=== PATIENT | female | born 1950 | race Caucasian/White ===

== ENCOUNTER 2016-09-13 09:27 | Inpatient (IN) | payer OTHER, MEDICARE ==
[~2016-09-13] VITALS: Ht 162.6 cm; Wt 99.0 kg
[2016-09-15] MEDS ORDERED: NEXI40CA PO (12:51)
[2016-09-18 07:17] VITALS: BP 167/75; PULSE 66; RESP 16; TEMP 98.7; O2SAT 95
[2016-09-18] MEDS ORDERED: TRANEXAMIC PERI-ARTICULAR 3,000 MG/NS 100 ML P-ARTICULR SCH ×2 (07:30)
[2016-09-18] MEDS ORDERED: TRANEXAMIC ACID INJ 1,425 MG in SODIUM CHLORIDE 0.9% INJ 100 ML IV SCH (07:30)
[2016-09-18] MEDS ORDERED: POVIDONE IODINE 7.5% SCRUB 118 ML BOTTLE TOP SCH (07:30)
[2016-09-18] MEDS ORDERED: ceFAZolin 2 GM PREMIX 50 ML IV SCH (07:30)
[2016-09-18] MEDS: LACTATED RINGER'S 1000 ML IV SCH (07:30)
[2016-09-18] MEDS ORDERED: DEXAMETHASONE SOD PHOS 20 MG/5 ML VIAL IV ONE (07:30)
[2016-09-18] MEDS ORDERED: CHLORHEXIDINE GLUCONATE 4% SOLN 120 ML BTL TOP SCH (07:30)
[2016-09-18] MEDS ORDERED: ROPIVACAINE PERI-ARTICULAR INJECTION. PERIART SCH ×5 (07:30)
[2016-09-18] MEDS ORDERED: INSULIN HUMAN REGULAR 1,000 UNITS/10 ML VIAL SQ PRN (07:45)
[2016-09-18] MEDS ORDERED: METOPROLOL TARTRATE 25 MG TAB PO PRN (07:45)
[2016-09-18] MEDS ORDERED: VANCOMYCIN 1000 MG/NS 250 ML (for <70 kg) IV SCH ×2 (07:45)
[2016-09-18] MEDS: SODIUM CHLORID 0.9% 500 ML IV SCH (08:00)
[2016-09-18] MEDS ORDERED: MIDAZOLAM HCL 5 MG/5 ML VIAL ONE (08:02)
[2016-09-18] MEDS ORDERED: GENTAMICIN SULFATE 80 MG/2 ML VIAL ONE (08:30)
[2016-09-18] MEDS ORDERED: ACETAMINOPHEN 1000 MG/100 ML VIAL IV ONE (09:00)
[2016-09-18] MEDS ORDERED: FAMOTIDINE 20 MG/2 ML VIAL ONE (09:00)
[2016-09-18] MEDS ORDERED: HYDROmorphone HCL PF 2 MG/ML VIAL ONE (09:00)
[2016-09-18] MEDS ORDERED: HYDR-3288 PO (09:14)
[2016-09-18] MEDS ORDERED: APIX2.5T PO (09:14)
[2016-09-18] MEDS ORDERED: ONDANSETRON HCL 4 MG/2 ML VIAL IVP PRN (09:15)
[2016-09-18] MEDS ORDERED: MAGNESIUM HYDROXIDE SUSP 30 ML CUP PO PRN (09:15)
[2016-09-18] MEDS ORDERED: MORPHINE SULFATE 4 MG/ML INJ IV PUSH PRN (09:15)
[2016-09-18] MEDS ORDERED: ZOLPIDEM TARTRATE 5 MG TAB PO PRN (09:15)
[2016-09-18] MEDS ORDERED: ALUMINUM/MAGNESIUM/SIMETH 30 ML CUP PO PRN (09:15)
[2016-09-18] MEDS ORDERED: diphenhydrAMINE HCL 50 MG/ML VIAL IV PRN (09:15)
[2016-09-18] MEDS ORDERED: SODIUM CHLORIDE 0.9% FLUSH 5 ML FLUSH IVF PRN (09:15)
[2016-09-18] MEDS ORDERED: ACETAMINOPHEN/HYDROcodone 325 MG/7.5 MG TAB PO PRN (09:15)
[2016-09-18] MEDS ORDERED: NALOXONE HCL 0.4 MG/ML AMP IV PRN (09:15)
[2016-09-18] MEDS ORDERED: Post-op Orders (for Pharmacy) MISC XX ONE (09:15)
[2016-09-18] MEDS ORDERED: BISACODYL 10 MG SUPP PR PRN (09:15)
[2016-09-18] MEDS ORDERED: BUPIVACAINE LIPOSOME PF 1.3% 20 ML VIAL ONE (10:51)
[2016-09-18] MEDS ORDERED: DO NOT ADM ANY ANTICOAGULANT DRUGS XX PRN ×2 (11:15→12:00)
[2016-09-18] MEDS ORDERED: fentaNYL CITRATE 250 MCG/5 ML AMP ONE (11:27)
--- NOTE | 2016-09-18 11:39 | MP ---
cc: DESMOND ARAMBULA DATE OF SURGERY 09/18/2016 PREOPERATIVE DIAGNOSIS Right knee osteoarthritis. POSTOPERATIVE DIAGNOSIS Right knee osteoarthritis. PROCEDURE Right total knee arthroplasty SURGEON Dr. Desmond Arambula [employer] Jamie Torres PA-C ANESTHESIA General with an adductor canal block. ESTIMATED BLOOD LOSS 100 cc. COMPLICATIONS None. IMPLANTS USED DePuy Attune size 7 posterior stabilized femoral component, size 7 rotating platform tibial baseplate, size 12-mm polyethylene tibial insert, size 38-mm patella. JUSTIFICATION This patient is a 66-year-old female with a history of severe end-stage osteoarthritis involving the right knee. She has severe disabling pain with standing, walking, ambulation, weightbearing activities and even severe pain at rest. It does interfere with activities of daily living. She has failed greater than two months of nonoperative conservative treatment modalities to include medication therapy, injections, ambulatory assistive aids, home exercise program, activity modification, weight loss attempts. X-rays of the right knee reveal severe end-stage osteoarthritis with [id number] joint space narrowing, subchondral sclerosis, subchondral cysts, osteophyte formation and varus deformity. The patient was counseled as to the risks, benefits and alternatives to a total knee arthroplasty. The risks were discussed to include but are not limited to anesthesia, bleeding, infection, damage to nerves, blood vessels, pain, stiffness, failure of the components, blood clots, pulmonary embolism and even . The patient's pain is severe. She favored the benefits over the risks and did wish to proceed with surgery. PROCEDURE IN DETAIL Written consent was obtained. The patient was identified by name and taken to the operating room, placed supine on the operating room table. General anesthesia was administered as well as 2 grams of IV Ancef and 1 gram of IV vancomycin. A well-padded tourniquet was placed on the right thigh, the right lower extremity prepped and draped using isopropyl alcohol, Hibiclens solution and ChloraPrep solution. An Esmarch bandage was used to exsanguinate the right lower extremity and the tourniquet inflated to 250 mmHg. A longitudinal incision was made over the anterior aspect of the right knee and medial parapatellar arthrotomy incision was performed. The patella was everted. A patellar resection guide was used to resect 9.5 mm of patella. A size 38-mm guide was placed and three drill holes were placed. The 38-mm trial fit well. Attention was turned to the femur where an intramedullary guide dixie was placed and the distal guide set to remove 10 mm of distal femur, 5 degrees off the anatomic valgus axis alignment. An oscillating saw was used to perform the distal femoral cut. Attention was turned to the tibia where an extramedullary tibial guide was set to resect 5-mm off the lowest portion of the medial tibial plateau. The tibial guide was pinned in place and the tibia was cut. The 5-mm spacer block showed full extension. Attention was turned back to the femur where the AP sagittal block measured a size 7. The anterior reference, 3-degree external rotational guide was used to pin the size [address] The anterior, posterior and chamfer cuts were performed. A size 7 PCL box guide was pinned in place and PCL was boxed out with an oscillating saw. The medial and lateral meniscus remnants were removed as well as bone and soft tissue debris from the posterior portion of the knee. A size 7 tibial base plate was pinned in place, the tibia was drilled and punched. Trial components were evaluated and final components cemented in place. With the 12-mm polyethylene tibial insert, the leg could achieve full extension of 0 degrees and flexion to 140, no evidence of tibial lift-off. Varus-valgus balance appeared appropriate and symmetric. The surgical wound was thoroughly irrigated with sterile saline pulse lavage antibiotic impregnated solution. The arthrotomy incision was closed with #1 Vicryl suture, the subcutaneous layer closed with 2-0 Vicryl suture and the skin was closed with Dermabond. Sterile dressings were applied. The patient tolerated the procedure well. There was no intraoperative complication noted. Jamie Torres, physician assistant manager trainee certified, was present during the entire procedure to include patient positioning and the procedure itself. The medical necessity of a physician assistant manager trainee was indicated in this case due to the complexity of the procedure itself. He assisted with appropriate manipulation of the leg and also retraction of muscle, tendon, bone and neurovascular structures. He assisted with preparation of bone and implantation of the prosthetic replacement. Desmond Arambula MD JWM/MICHEAL /10:58 AM /11:28 AM
[2016-09-18] MEDS ORDERED: ePHEDrine/NS 25 MG/5 ML SYR IV ONE (12:00)
[2016-09-18] MEDS ORDERED: ONDANSETRON HCL 4 MG/2 ML VIAL IV PUSH ONE (12:00)
[2016-09-18] MEDS ORDERED: PROPOFOL 200 MG/20 ML AMP IV ONE (12:00)
[2016-09-18] MEDS: SODIUM CHLOR 0.9% 1000 ML INJ 1,000 ML IV SCH ×2 (12:00→19:11)
[2016-09-18] MEDS ORDERED: LACTATED RINGER'S 1000 ML INJ 1,000 ML IV ONE (12:00)
--- NOTE | 2016-09-18 12:02 | RADRPT ---
EXAM DATE/TIME: 09/18/2016 11:33 [facility] COMPARISON: No previous studies available for comparison. INDICATIONS : Post op right knee. MEDICAL HISTORY : None. SURGICAL HISTORY : Right knee replacement. ENCOUNTER: Subsequent ACUITY: 1 day PAIN SCORE: 5/10 LOCATION: Right knee FINDINGS: Placement of a total knee prosthesis is well-seated with anterior soft tissue air CONCLUSION: Total knee prosthesis well seated Yoandy Amos MD on September 18, 2016 at 12:00 Board Certified Radiologist. This report was verified electronically.
[2016-09-18 12:55] VITALS: BP 137/84; PULSE 76; RESP 18; TEMP 96.6; O2SAT 99
--- NOTE | 2016-09-18 14:59 | PD.CONS ---
HPI Service [facility] Consult Requested By Dr. Constantino Mdeina Reason for Consult Medical management- history of GERD/hiatal hernia Primary Care Physician Desi Banda physician Diagnoses: History of Present Illness Patient is a very pleasant 66-year-old female with known history of bilateral osteoarthritis knee, GERD/hiatal hernia, history of chronic back pain who every now and uses a cane for ambulation. She was admitted today and underwent right total knee arthroplasty because of increasing pain on this knee that has been getting just out of control. Patient takes ibuprofen that helps "a little bit. Patient actually have also complained of left knee pain and had shots done to this receive shots to this knee. Eventually plan is to, do surgery on this knee 2. Patient currently seen postop day 0 awake alert very motivated with doing more physical therapy. And looking forward to going to a [facility]. Patient currently denies any pain nausea vomiting. Review of Systems Constitutional: DENIES: Diaphoretic episodes, Fatigue, Fever, Weight gain, Weight loss, Chills, Dizziness, Change in appetite, Night Sweats Endocrine: DENIES: Abnorml menstrual pattern, Heat/cold intolerance, Polydipsia , Polyuria, Polyphagia Eyes: DENIES: Blurred vision, Diplopia, Eye inflammation, Eye pain, Vision loss , Photosensitivity, Double Vision Ears, nose, mouth, throat: DENIES: Tinnitus, Hearing loss, Vertigo, Nasal discharge, Oral lesions, Throat pain, Hoarseness, Ear Pain, Running Nose, Epistaxis, Sinus Pain, Toothache, Odynophagia Respiratory: DENIES: Apneas, Cough, Snoring, Wheezing, Hemoptysis, Sputum production, Shortness of breath Cardiovascular: DENIES: Chest pain, Palpitations, Syncope, Dyspnea on Exertion , PND, Lower Extremity Edema, Orthopnea, Claudication Gastrointestinal: DENIES: Abdominal pain, Black stools, Bloody stools, Constipation, Diarrhea, Nausea, Vomiting, Difficulty Swallowing, Anorexia Genitourinary: DENIES: Abnormal vaginal bleeding, Dysmenorrhea, Dyspareunia, Sexual dysfunction, Urinary frequency, Urinary incontinence, Urgency, Hematuria , Dysuria, Nocturia, Vaginal discharge Musculoskeletal: COMPLAINS OF: Joint pain (bilateral knee pain) Integumentary: DENIES: Abnormal pigmentation, Pruritus, Rash, Nail changes, Breast masses, Breast skin changes, Nipple discharge Hematologic/lymphatic: DENIES: Bruising, Lymphadenopathy Immunologic/allergic: DENIES: Eczema, Urticaria Neurologic: COMPLAINS OF: Abnormal gait (gait difficulty because of knee pain occasionally uses a cane) Psychiatric: DENIES: Anxiety, Confusion, Mood changes, Depression, Hallucinations, Agitation, Suicidal Ideation, Homicidal Ideation, Delusions Past Family Social History Allergies: Coded Allergies: No Known Allergies (Unverified , 09/18/16) Past Medical History History of GERD/hiatal hernia well controlled on omeprazole 40 mg daily Past Surgical History Gastric bypass surgery in 1999 Reported Medications As outpatient she was on omeprazole 40 mg daily When necessary ibuprofen Active Ordered Medications Eliquis 2.5 mg twice a day [place] 7.5 mg every 6 when necessary for pain Family History Noncontributory Social History Denies smoking or alcohol use denies any substance abuse, 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 SKIN: No rashes, ecchymoses or lesions. Cool and dry. HEAD: Atraumatic. Normocephalic EYES: Pupils equal round and reactive. Extraocular motions intact. No scleral icterus. ENT: Nose without bleeding, Throat without erythema, Airway patent. NECK: Trachea midline. No JVD or lymphadenopathy. Supple, nontender, no meningeal signs. CARDIOVASCULAR: Regular rate and rhythm without murmurs, gallops, or rubs. RESPIRATORY: Clear to auscultation. Breath sounds equal bilaterally. No wheezes , rales, or rhonchi. GASTROINTESTINAL: Abdomen soft, non-tender, No guarding. MUSCULOSKELETAL: Right lower extremity with post op elastic dressing in place. Left lower extremity no calf tenderness or swelling. NEUROLOGICAL: Awake and alert. Cranial nerves II through XII intact. Five out of 5 muscle strength in all muscle groups. Normal speech. Laboratory Laboratory Tests Test 09/18/16 07:20 Blood Type B NEGATIVE Antibody Screen NEGATIVE Blood Bank Comment Imaging Last Impressions Knee X-Ray 09/18/16 0911 Signed Impressions: Service Date/Time: Sunday, September 18, 2016 11:33 - CONCLUSION: Total knee prosthesis well seated Yoandy Amos MD Assessment and Plan Assessment and Plan 66-year-old female admitted under orthopedic services Status post right total knee arthroplasty 09/18 [place] prn for pain PTOT evaluation Orthopedic surgery following History of GERD/hiatal hernia Continue on omeprazole 40 mg daily DVT prophylaxis per ortho DC planning patient prefers to go to SNF- [facility] Thank you for this consult we'll follow patient in-house with you Discussed Condition With Patient Darian Farias MD Sep 18, 2016 14:59
[2016-09-18 16:00] VITALS: BP 128/69; PULSE 102; RESP 18; TEMP 96.4; O2SAT 95
[2016-09-18] MEDS: SENNOSIDES 8.6 MG TAB PO SCH (19:52)
[2016-09-18] MEDS: SODIUM CHLORIDE 0.9% FLUSH 5 ML FLUSH IVF SCH (19:52)
[2016-09-18] MEDS: MAGNESIUM HYDROXIDE SUSP 30 ML CUP PO SCH (19:52)
[2016-09-18 20:00] VITALS: BP 126/77; PULSE 72; RESP 16; TEMP 97; O2SAT 97
[2016-09-18] MEDS: ACETAMINOPHEN/HYDROcodone 325 MG/7.5 MG TAB PO PRN (20:17)
[2016-09-19] VITALS: BP 106/54; PULSE 62; RESP 16; TEMP 97.1; O2SAT 96
[2016-09-19] MEDS: SODIUM CHLORID 0.9% 500 ML IV SCH (00:40)
[2016-09-19 04:00] VITALS: BP 129/71; PULSE 67; RESP 16; TEMP 97.9; O2SAT 96
[2016-09-19] MEDS: SODIUM CHLOR 0.9% 1000 ML INJ 1,000 ML IV SCH ×2 (05:11→15:11)
[2016-09-19] MEDS: ACETAMINOPHEN/HYDROcodone 325 MG/7.5 MG TAB PO PRN ×5 (05:25→23:35)
[2016-09-19 06:01] LABS: HEMATOCRIT 26.4 % (35.0-46.0); MEAN CELL VOLUME 78.6 FL (80.0-100.0); MEAN CORPUSCULAR HGB CONC 31.8 % (32.0-36.0); PLATELET COUNT 264 TH/MM3 (150-450); RED BLOOD COUNT 3.35 MIL/MM3 (4.00-5.30); RED CELL DISTRIBUTION WIDTH 16.2 % (11.6-17.2); REVIEW FLAG FINAL; WHITE BLOOD COUNT 9.8 TH/MM3 (4.0-11.0)
[2016-09-19 06:20] LABS: BICARBONATE 25.3 MEQ/L (21.0-32.0)
[2016-09-19 08:00] VITALS: BP 132/69; PULSE 71; RESP 18; TEMP 97.9; O2SAT 98
[2016-09-19] MEDS: LACTATED RINGER'S 1000 ML IV SCH (08:00)
--- NOTE | 2016-09-19 08:30 | PD.ORT.PN ---
Subjective Post Op Day #: 1 Subjective Remarks pain controlled. doing well. Objective Vitals Vital Signs Date Time Temp Pulse Resp B/P Pulse Ox O2 Delivery O2 Flow Rate FiO2 09/19/16 08:00 97.9 71 18 132/69 98 09/19/16 04:00 97.9 67 16 129/71 96 09/19/16 00:00 97.1 62 16 106/54 96 09/18/16 20:00 97.0 72 16 126/77 97 09/18/16 16:00 96.4 102 18 128/69 95 09/18/16 12:55 96.6 76 18 137/84 99 09/18/16 12:25 97.8 68 16 140/75 95 Nasal Cannula 2 09/18/16 12:15 68 15 141/77 94 Nasal Cannula 2 09/18/16 12:00 67 15 143/81 97 Nasal Cannula 3 09/18/16 11:45 65 15 148/76 94 Nasal Cannula 3 09/18/16 11:30 71 15 153/79 98 Nasal Cannula 4 09/18/16 11:20 97.8 86 15 155/88 97 Nasal Cannula 4 I/O 09/18/16 09/18/16 09/18/16 09/19/16 09/19/16 09/19/16 07:00 15:00 23:00 07:00 15:00 23:00 Intake Total 1400 ml 840 ml 240 ml Output Total 950 ml Balance 450 ml 840 ml 240 ml Intake Oral 840 ml 240 ml IV Total 100 ml Other 1300 ml Output Urine Total 850 ml Estimated Blood Loss 100 ml # Voids 4 1 # Bowel Movements 0 0 Result Diagram: 09/19/1615 09/19/16 0515 Imaging Last 24 hours Impressions Knee X-Ray 09/18/16 0911 Signed Impressions: Service Date/Time: Sunday, September 18, 2016 11:33 - CONCLUSION: Total knee prosthesis well seated Yoandy Amos MD Objective Remarks in chair, nad dressing c/d/i neg homans nvi Assessment & Plan Ortho Post Op Day #: 1 Problem List: Assessment and Plan s/p R TKA wbat daily dressing changes lovenox - d/co on Eliquis rx in chart d/c planning to [facility] [id number] signed f/up dr. robison 2 weeks Constantino Torres Sep 19, 2016 08:30
--- NOTE | 2016-09-19 08:31 | HHI.DCPOC ---
Discharge Care Plan Diagnosis: (1) Primary localized osteoarthrosis, lower leg Your Health Problems Are: Difficulty with ADL Goals to Promote Your Health * To prevent worsening of your condition and complications * To maintain your health at the optimal level Directions to Meet Your Goals Take your medications as prescribed Follow your dietary instruction Follow activity as directed Keep your appointments as scheduled Take your immunizations and boosters as scheduled If your symptoms worsen call your PCP, if no PCP go to Urgent Care Center or Emergency Room Smoking is Dangerous to Your Health. Avoid second hand smoke Call the 24-hour hour crisis hotline for domestic abuse at Constantino Torres Sep 19, 2016 08:31
[2016-09-19] MEDS ORDERED: CPMMACHINE (08:32)
[2016-09-19] MEDS ORDERED: WALKER WHEELS/F1 MIS (08:32)
[2016-09-19] MEDS: PANTOPRAZOLE SOD 40 MG DELAYED RELEASE TAB PO SCH (09:50)
[2016-09-19] MEDS: SODIUM CHLORIDE 0.9% FLUSH 5 ML FLUSH IVF SCH ×2 (09:50→21:24)
[2016-09-19] MEDS: ENOXAPARIN SODIUM 40 MG/0.4 ML SYRINGE SQ SCH (10:27)
[2016-09-19] MEDS: MAGNESIUM HYDROXIDE SUSP 30 ML CUP PO SCH ×2 (10:28→20:42)
[2016-09-19 12:00] VITALS: BP 130/72; PULSE 72; RESP 19; TEMP 98.1; O2SAT 98
--- NOTE | 2016-09-19 15:23 | HHI.PR ---
Subjective Remarks no complains patient very motivated with physical therapy voiding spontaneously Objective Vitals Vital Signs Date Time Temp Pulse Resp B/P Pulse Ox O2 Delivery O2 Flow Rate FiO2 09/19/16 12:00 98.1 72 19 130/72 98 09/19/16 08:00 97.9 71 18 132/69 98 09/19/16 04:00 97.9 67 16 129/71 96 09/19/16 00:00 97.1 62 16 106/54 96 09/18/16 20:00 97.0 72 16 126/77 97 09/18/16 16:00 96.4 102 18 128/69 95 I/O 09/18/16 09/18/16 09/18/16 09/19/16 09/19/16 09/19/16 07:00 15:00 23:00 07:00 15:00 23:00 Intake Total 1400 ml 840 ml 240 ml Output Total 950 ml Balance 450 ml 840 ml 240 ml Intake Oral 840 ml 240 ml IV Total 100 ml Other 1300 ml Output Urine Total 850 ml Estimated Blood Loss 100 ml # Voids 4 1 # Bowel Movements 0 0 Result Diagram: 09/19/16 0515 09/19/16 0515 Imaging Last Impressions Knee X-Ray 09/18/16 0911 Signed Impressions: Service Date/Time: Sunday, September 18, 2016 11:33 - CONCLUSION: Total knee prosthesis well seated Yoandy Amos MD Objective Remarks awake and alert, oriented 3 anicteric lungs clear regular rhythm abdomen soft, Right LE- elastic dressing in place Procedures 09/18- right TKA A/P Assessment and Plan 66-year-old female admitted under orthopedic services Status post right total knee arthroplasty 09/18 [place] prn for pain PT daily Orthopedic surgery following Postop anemia started on MVI per ortho History of GERD/hiatal hernia Continue on omeprazole 40 mg daily DVT prophylaxis - Lovenox patient on eliquis 2.5 mg by mouth twice a day DC planning patient - [facility] - Sunday Darian Farias MD Sep 19, 2016 15:23
[2016-09-19 16:25] VITALS: BP 146/77; PULSE 75; RESP 18; TEMP 98.1; O2SAT 98
[2016-09-19 19:31] VITALS: BP 136/64; PULSE 77; RESP 18; TEMP 98.3; O2SAT 96
[2016-09-19] MEDS: DOCUSATE SODIUM 100 MG CAP PO SCH (20:42)
[2016-09-19] MEDS: MULTIVITAMINS/MINERALS THERAPEUTIC TAB PO SCH (20:42)
[2016-09-19] MEDS: SENNOSIDES 8.6 MG TAB PO SCH (20:42)
[2016-09-20] VITALS: BP 148/67; PULSE 90; RESP 17; TEMP 99.5; O2SAT 93
[2016-09-20] MEDS: ACETAMINOPHEN/HYDROcodone 325 MG/7.5 MG TAB PO PRN ×3 (04:47→12:53)
[2016-09-20 07:03] LABS: HEMATOCRIT 24.5 % (35.0-46.0); MEAN CELL VOLUME 77.1 FL (80.0-100.0); MEAN CORPUSCULAR HGB CONC 32.4 % (32.0-36.0); PLATELET COUNT 235 TH/MM3 (150-450); RED BLOOD COUNT 3.18 MIL/MM3 (4.00-5.30); RED CELL DISTRIBUTION WIDTH 16.3 % (11.6-17.2); REVIEW FLAG FINAL; WHITE BLOOD COUNT 7.3 TH/MM3 (4.0-11.0)
[2016-09-20 07:22] LABS: BICARBONATE 27.6 MEQ/L (21.0-32.0); POTASSIUM 3.9 MEQ/L (3.5-5.1)
[2016-09-20 08:00] VITALS: BP 143/68; PULSE 83; RESP 18; TEMP 98.4; O2SAT 94
--- NOTE | 2016-09-20 08:33 | PD.ORT.PN ---
Subjective Post Op Day #: 2 Subjective Remarks pain controlled. doing well. Objective Vitals Vital Signs Date Time Temp Pulse Resp B/P Pulse Ox O2 Delivery O2 Flow Rate FiO2 09/20/16 08:00 98.4 83 18 143/68 94 09/20/16 00:00 99.5 90 17 148/67 93 09/19/16 19:31 98.3 77 18 136/64 96 09/19/16 16:25 98.1 75 18 146/77 98 09/19/16 12:00 98.1 72 19 130/72 98 I/O 09/19/16 09/19/16 09/19/16 09/20/16 09/20/16 09/20/16 07:00 15:00 23:00 07:00 15:00 23:00 Intake Total 240 ml 720 ml 240 ml 240 ml Balance 240 ml 720 ml 240 ml 240 ml Intake Oral 240 ml 720 ml 240 ml 240 ml # Voids 1 3 2 3 # Bowel Movements 0 0 0 Result Diagram: 09/20/16 0613 09/20/16 0613 Imaging Last 24 hours Impressions Knee X-Ray 09/18/16 0911 Signed Impressions: Service Date/Time: Sunday, September 18, 2016 11:33 - CONCLUSION: Total knee prosthesis well seated Yoandy Amos MD Objective Remarks in chair, nad incision no erythema, no drainage neg homans nvi Assessment & Plan Ortho Post Op Day #: 2 Problem List: Assessment and Plan s/p R TKA wbat daily dressing changes lovenox - d/co on Eliquis IS and OOB rx in chart d/c planning to [facility] 3008 signed f/up dr. robison 2 weeks Constantino Torres Sep 20, 2016 08:33
[2016-09-20] MEDS: DOCUSATE SODIUM 100 MG CAP PO SCH (09:03)
[2016-09-20] MEDS: MULTIVITAMINS/MINERALS THERAPEUTIC TAB PO SCH (09:03)
[2016-09-20] MEDS: PANTOPRAZOLE SOD 40 MG DELAYED RELEASE TAB PO SCH (09:04)
[2016-09-20] MEDS: MAGNESIUM HYDROXIDE SUSP 30 ML CUP PO SCH (09:04)
[2016-09-20] MEDS: ENOXAPARIN SODIUM 40 MG/0.4 ML SYRINGE SQ SCH (09:05)
[2016-09-20] MEDS: SODIUM CHLORIDE 0.9% FLUSH 5 ML FLUSH IVF SCH (09:06)
[2016-09-20] MEDS: LACTATED RINGER'S 1000 ML IV SCH (09:06)
[2016-09-20 09:19] VITALS: O2SAT 96
[2016-09-20] MEDS ORDERED: MAGNESIUM HYDROXIDE SUSP 30 ML CUP PO ONE (11:30)
[2016-09-20 12:00] VITALS: BP 141/65; PULSE 75; RESP 18; TEMP 97.6; O2SAT 96
--- NOTE | 2016-09-25 08:31 | MD ---
cc: DESMOND MEDINA ADMISSION DATE: 09/18/2016 DISCHARGE DATE: 09/20/2016 ADMISSION DIAGNOSIS Severe degenerative osteoarthritis right knee. DISCHARGE DIAGNOSIS Severe degenerative osteoarthritis right knee. HISTORY OF PRESENT ILLNESS Ms. Corona is a 66-year-old female who presented to the [facility] for evaluation by Dr. Desmond Medina regarding her severe bilateral knee pain, right greater than left. The patient states the pain has been bothering her for numerous years and currently her right knee is a severe constant aching sensation aggravated by weightbearing activities. She notes she has been treated for this ailment for greater than one year duration. She notes the right knee has no alleviating factors for her pain at this point in time. In the past she has tried medications, bracing, physical therapy, home exercise program, multiple corticosteroid injections without long-lasting relief. She does have x-ray evidence of severe degenerative osteoarthritis of the right knee. While in the office the patient was counseled on her diagnosis and treatment options. Risks, benefits, indications of all were discussed in great detail. The patient did elect to proceed with surgical intervention to include a right total knee arthroplasty. Date of surgery 09/18/2016, right total knee arthroplasty. POSTOPERATIVE After surgery the patient admitted to [facility] where she received appropriate medical management, pain control, DVT prophylaxis as well as physical therapy. DISCHARGE Once being discharged from the hospital the patient is cleared to go to a half-way facility. She is in stable condition. She may weightbear as tolerated. She is to receive daily dressing changes and has been instructed on proper wound care management. The patient has been provided prescriptions for pain control as well as DVT prophylaxis medication. She has also been provided a follow-up appointment to see Dr. Desmond Medina in the office approximately 2 weeks from her date of surgery. The patient has asked appropriate questions which have all been answered. Patient has been cleared for discharge. Dictated by MELVIN Don MD NELIA Daley/KATHY /7:58 AM /8:32 AM
== END 2016-09-20 13:49 | DRG 470 ==
LOC: HSDI 09-18 05:18 → N06A 09-18 12:37
PROVIDERS: ADMIT Orthopaedic Surgery Sports Medicine; ATTEND Orthopaedic Surgery Sports Medicine
PROC: 3E0T3CZ (ICD-10-PCS; 2016-09-18)
PROC: 0SRC0J9 Replacement of Right Knee Joint with Synthetic Substitute, Cemented, Open Approach (ICD-10-PCS; principal; 2016-09-18 09:10)
DX: M17.11 Unilateral primary osteoarthritis, right knee (principal); E66.9 Obesity, unspecified; D64.9 Anemia, unspecified; K21.9 Gastro-esophageal reflux disease without esophagitis; K44.9 Diaphragmatic hernia without obstruction or gangrene; Z98.84 Bariatric surgery status; Z68.37 Body mass index [BMI] 37.0-37.9, adult
CPT/HCPCS: 73560; 80048; 85027; 86850; 86900; 86901; 94150; C1776; C9290; J0131; J0171; J0690; J0735; J1100; J1170; J1580; J1650; J1885; J2250; J2270; J2405; J2795; J3010; J3370; J7030; J7050; J7120; L1830

== ENCOUNTER 2017-01-09 15:35 | Inpatient (IN) | payer OTHER, MEDICARE ==
[~2017-01-09] VITALS: Ht 162.6 cm; Wt 101.3 kg
[~2017-01-09 15:35] MED LIST: NEXI40CA PO; WALKER WHEELS/F1 MIS
[2017-01-15] MEDS ORDERED: SODIUM CHLORIDE 0.9% FLUSH 5 ML FLUSH IVF PRN (06:45)
[2017-01-15] MEDS ORDERED: ACETAMINOPHEN/HYDROcodone 325 MG/7.5 MG TAB PO PRN (06:45)
[2017-01-15] MEDS ORDERED: ALUMINUM/MAGNESIUM/SIMETH 30 ML CUP PO PRN (06:45)
[2017-01-15] MEDS ORDERED: ONDANSETRON HCL 4 MG/2 ML VIAL IVP PRN (06:45)
[2017-01-15] MEDS ORDERED: NALOXONE HCL 0.4 MG/ML AMP IV PRN (06:45)
[2017-01-15] MEDS ORDERED: ZOLPIDEM TARTRATE 5 MG TAB PO PRN (06:45)
[2017-01-15] MEDS ORDERED: MORPHINE SULFATE 4 MG/ML INJ IV PUSH PRN (06:45)
[2017-01-15] MEDS ORDERED: diphenhydrAMINE HCL 50 MG/ML VIAL IV PRN (06:45)
[2017-01-15] MEDS ORDERED: BISACODYL 10 MG SUPP RECTAL PRN (06:45)
[2017-01-15] MEDS ORDERED: HYDR-3288 PO (06:46)
[2017-01-15] MEDS ORDERED: ENOX40P SQ (06:47)
[2017-01-15] MEDS ORDERED: ASPI81CH37 CHEW (06:47)
[2017-01-15] MEDS ORDERED: GENTAMICIN SULFATE 80 MG/2 ML VIAL ONE (07:03)
[2017-01-15 07:26] VITALS: BP 171/81; PULSE 72; RESP 16; TEMP 98.7; O2SAT 96
[2017-01-15] MEDS ORDERED: DEXAMETHASONE SOD PHOS 20 MG/5 ML VIAL ONE (07:33)
[2017-01-15] MEDS ORDERED: ceFAZolin 2 GM PREMIX 50 ML ONE (07:33)
[2017-01-15] MEDS ORDERED: VANCOMYCIN HCL 1000 MG VIAL ONE (07:33)
[2017-01-15] MEDS ORDERED: SODIUM CHLOR 0.9% 250 ML INJ 250 ML ONE (07:33)
[2017-01-15 07:38] LABS: BLOOD, URINE MOD (NEG); COMMENT (UR) CATH-CULT NOT IND; CULTURE IF INDICATED CATH CULTURE NOT IND; GLUCOSE,URINE NEG (NEG); KETONE, URINE NEG (NEG); MUCUS URINE FEW /lpf (OCC); NITRITE,URINE NEG (NEG); PH, URINE 5.5 (5.0-8.5); URINE COLOR YELLOW (YELLW/STRAW)
[2017-01-15] MEDS ORDERED: CHLORHEXIDINE GLUCONATE 2 % 1 PACK (2 CLOTHS) TOPICAL PRN (08:00)
[2017-01-15] MEDS ORDERED: ceFAZolin 2 GM PREMIX 50 ML IV SCH (08:00)
[2017-01-15] MEDS ORDERED: INSULIN HUMAN REGULAR 1,000 UNITS/10 ML VIAL SQ PRN (08:00)
[2017-01-15] MEDS ORDERED: METOPROLOL TARTRATE 25 MG TAB PO PRN (08:00)
[2017-01-15] MEDS ORDERED: POVIDONE IODINE 5% (ANTISEPSIS KIT) 4 APPLICATIONS EACH NARE PRN (08:00)
[2017-01-15] MEDS ORDERED: CHLORHEXIDINE GLUCONATE 4% SOLN 120 ML BTL TOPICAL SCH (08:00)
[2017-01-15] MEDS ORDERED: POVIDONE IODINE 7.5% SCRUB 118 ML BOTTLE TOPICAL SCH (08:00)
[2017-01-15] MEDS ORDERED: TRANEXAMIC ACID IV SCH (08:00)
[2017-01-15] MEDS ORDERED: LACTATED RINGER'S 1000 ML IV PRN (08:00)
[2017-01-15] MEDS ORDERED: TRANEXAMIC PERI-ARTICULAR 3,000 MG/NS 100 ML P-ARTICULR SCH ×2 (08:00)
[2017-01-15] MEDS ORDERED: ROPIVACAINE PERI-ARTICULAR INJECTION. P-ARTICULR SCH ×5 (08:00)
[2017-01-15] MEDS ORDERED: SODIUM CHLORID 0.9% 500 ML IV PRN (08:00)
[2017-01-15] MEDS ORDERED: SODIUM CHLORIDE 0.9% IV SCH (08:00)
[2017-01-15] MEDS ORDERED: VANCOMYCIN 1000 MG/NS 250 ML (for <70 kg) IV SCH ×2 (08:00)
[2017-01-15] MEDS ORDERED: FAMOTIDINE 20 MG/2 ML VIAL ONE (08:05)
[2017-01-15] MEDS ORDERED: MIDAZOLAM HCL 2 MG/2 ML VIAL ONE ×2 (08:05→10:55)
[2017-01-15] MEDS ORDERED: ACETAMINOPHEN 1000 MG/100 ML VIAL IV ONE (08:05)
[2017-01-15] MEDS: PANTOPRAZOLE SOD 40 MG DELAYED RELEASE TAB PO SCH (09:00)
[2017-01-15] MEDS: SODIUM CHLORIDE 0.9% FLUSH 5 ML FLUSH IVF SCH ×2 (09:00→21:18)
[2017-01-15] MEDS ORDERED: BUPIVACAINE LIPOSOME PF 1.3% 20 ML VIAL ONE (10:52)
[2017-01-15] MEDS ORDERED: fentaNYL CITRATE 250 MCG/5 ML AMP ONE (10:55)
[2017-01-15] MEDS ORDERED: *morphine SULFATE 8 MG/ML PERIprocedure ONLY ONE (10:58)
[2017-01-15] MEDS ORDERED: DO NOT ADM ANY ANTICOAGULANT DRUGS PRN (11:00)
[2017-01-15] MEDS: SODIUM CHLOR 0.9% 1000 ML INJ 1,000 ML IV SCH ×2 (11:00→17:41)
[2017-01-15] MEDS ORDERED: Post-op Orders (for Pharmacy) MISC XX ONE (11:00)
--- NOTE | 2017-01-15 11:52 | RADRPT ---
EXAM DATE/TIME: 01/15/2017 11:01 [facility] COMPARISON: No previous studies available for comparison. INDICATIONS : Post operative left knee. MEDICAL HISTORY : None. SURGICAL HISTORY : None. ENCOUNTER: Initial ACUITY: 1 day PAIN SCORE: Non-responsive. LOCATION: Left knee. FINDINGS: Postsurgical features of left knee arthroplasty. Thoracic components are in anatomic alignment. No ev idence for acute bony fracture. Postsurgical soft tissue emphysema and edema. CONCLUSION: 1. Status post left knee arthroplasty in anatomic alignment without significant acute fracture. Eleazar Bear MD on January 15, 2017 at 11:38 Board Certified Radiologist. This report was verified electronically.
[2017-01-15 12:00] VITALS: BP 142/72; PULSE 81; RESP 16; TEMP 96.7; O2SAT 100
[2017-01-15] MEDS ORDERED: PROPOFOL 200 MG/20 ML AMP IV ONE (12:00)
[2017-01-15] MEDS ORDERED: ePHEDrine/NS 25 MG/5 ML SYR IV ONE (12:00)
[2017-01-15] MEDS ORDERED: ONDANSETRON HCL 4 MG/2 ML VIAL IV PUSH ONE (12:00)
[2017-01-15] MEDS ORDERED: LACTATED RINGER'S 1000 ML INJ 1,000 ML IV ONE (12:00)
[2017-01-15] MEDS ORDERED: NEOSTIGMINE 3 MG/3 ML SYR IV ONE (12:00)
[2017-01-15] MEDS ORDERED: PHENYLEPH/NS 1000 MCG/10 ML SYR IV ONE (12:00)
--- NOTE | 2017-01-15 13:00 | HHI.DCPOC ---
Discharge Care Plan Diagnosis: (1) Primary localized osteoarthrosis, lower leg Your Health Problems Are: Difficulty with ADL Goals to Promote Your Health * To prevent worsening of your condition and complications * To maintain your health at the optimal level Directions to Meet Your Goals Take your medications as prescribed Follow your dietary instruction Follow activity as directed Keep your appointments as scheduled Take your immunizations and boosters as scheduled If your symptoms worsen call your PCP, if no PCP go to Urgent Care Center or Emergency Room Smoking is Dangerous to Your Health. Avoid second hand smoke Call the 24-hour hour crisis hotline for domestic abuse at Constantino Torres Jan 15, 2017 13:00
--- NOTE | 2017-01-15 13:01 | HHI.FF ---
Face to Face Verification Diagnosis: (1) Primary localized osteoarthrosis, lower leg Physical Therapy Gait training, Safety evaluation, Transfer training, bed to chair Knee: Total knee, Protocol: Left, Full weight bearing Left LE Weight Bearing: WB as tolerated Nursing RN: 3 days/week x 2 weeks Nursing: Mirna teaching, Dressing changes Dressing Changes: Daily dressing change I have seen patient Lorena Corona on 01/15/17. My clinical findings support the need for the requested home health care services because: Limited ability to care for self High risk of falls I certify that my clinical findings support that this patient is homebound because: Post-op weakness Unsteady gait/balance Constantino Torres Jan 15, 2017 13:01
[2017-01-15 13:10] VITALS: O2SAT 98
[2017-01-15 16:00] VITALS: BP 115/68; PULSE 90; RESP 17; TEMP 96.1; O2SAT 96
--- NOTE | 2017-01-15 16:31 | PD.CONS ---
HPI Service [facility] Consult Requested By Orthopedic surgery. Reason for Consult Medical management. Primary Care Physician Kyree Shah MD Diagnoses: (1) Osteoarthritis of left knee (2) GERD (gastroesophageal reflux disease) History of Present Illness Ms. Corona is a pleasant 66 year old female with a history of osteoarthritis, right sided total knee arthroplasty, GERD who underwent elective left total knee arthroplasty on 01/15/2017. Patient reports significant left knee pain despite conservative management which prompted surgical consideration. At the time of this interview, patient is doing well and has no acute concerns. She denies any chest pain, shortness of breath, fever, chills. She feels somewhat uncomfortable with regards to her left knee and requests adjustments. No changes in bowel or bladder habits. Denies any abdominal pain. Review of Systems Except as stated in HPI: all other systems reviewed are Neg Past Family Social History Allergies: Coded Allergies: No Known Allergies (Unverified , 01/15/17) Past Medical History Osteoarthritis GERD Past Surgical History Right total knee arthroplasty Gastric bypass in year 1999 Reported Medications [place] 7.5/325mg 1-2 tab Q6hrs PRN Nexium 40mg Qday Family History Mother - cancer Dad - hypertension. Both parents were ministers. Social History Denies using tobacco or illicit drugs. However, she drinks small amount of alcohol everyday. Physical Exam Vital Signs Vital Signs Date Time Temp Pulse Resp B/P Pulse Ox O2 Delivery O2 Flow Rate FiO2 01/15/17 16:00 96.1 90 17 115/68 96 01/15/17 13:10 98 Nasal Cannula 3.00 01/15/17 12:00 96.7 81 16 142/72 100 01/15/17 11:45 97.8 78 14 133/71 94 Nasal Cannula 3 01/15/17 11:30 75 14 153/77 94 Nasal Cannula 3 01/15/17 11:15 77 14 141/68 94 Nasal Cannula 3 01/15/17 11:00 75 14 150/73 95 Nasal Cannula 3 01/15/17 10:50 97.8 90 16 156/76 98 Nasal Cannula 3 01/15/17 07:26 98.7 72 16 171/81 96 Physical Exam GENERAL: This is a well-nourished, well-developed patient, in no apparent distress. SKIN: No rashes, ecchymoses or lesions. Warm and dry. HEAD: Atraumatic. Normocephalic. No temporal or scalp tenderness. EYES: Pupils equal round and reactive. No injection or drainage. ENT: Nose without bleeding, purulent drainage or septal hematoma. Airway patent. NECK: Trachea midline. No lymphadenopathy. Supple, nontender, no meningeal signs. CARDIOVASCULAR: Regular rate and rhythm without murmurs, gallops, or rubs. No JVD. RESPIRATORY: Clear to auscultation. Breath sounds equal bilaterally. No wheezes , rales, or rhonchi. GASTROINTESTINAL: Abdomen soft, non-tender, nondistended. No guarding. MUSCULOSKELETAL: Extremities without clubbing, cyanosis, or edema. s/p left sided TKA. Moves all toes. NEUROLOGICAL: Awake and alert. Cranial nerves II through XII intact. No focal neurological deficits. Normal speech. Laboratory Laboratory Tests Test 01/15/17 01/15/17 07:16 07:28 Urine Color YELLOW Urine Turbidity CLEAR Urine pH 5.5 Urine Specific [place] 1.016 Urine Protein NEG Urine Glucose (UA) NEG Urine Ketones NEG Urine Occult Blood MOD Urine Nitrite NEG Urine Bilirubin NEG Urine Urobilinogen LESS THAN 2.0 Urine Leukocyte Esterase NEG Urine RBC 29 Urine WBC 1 Urine Mucus FEW Microscopic Urinalysis Comment CATH-CULT NOT IND Blood Type B NEGATIVE Antibody Screen NEGATIVE Imaging Last Impressions Knee X-Ray 01/15/17 0644 Signed Impressions: Service Date/Time: Sunday, January 15, 2017 11:01 - CONCLUSION: 1. Status post left knee arthroplasty in anatomic alignment without significant acute fracture. Eleazar Bear MD Assessment and Plan Problem List: (1) Osteoarthritis of left knee ICD Code: M17.12 Status: Acute (2) GERD (gastroesophageal reflux disease) ICD Code: K21.9 Status: Acute Assessment and Plan Ms. Corona is a 66 year old female with a history of osteoarthritis, GERD who underwent left sided total knee arthroplasty on 01/15/2017. Hospitalist service was consulted for medical management. - Osteoarthritis of left knee - s/p Left sided total knee arthroplasty - [place] 7.5/325 1-2 tablets and Morphine IV for pain PRN. - Docusate as well as dulcolax supp for bowel regimen. - Lovenox 40mg Q24hrs starting 01/16/2017 (10 doses). - GERD - Continue Protonix. Thank you for the consult. We will continue to follow this patient with you. Jair Bailey DO Jan 15, 2017 16:31
[2017-01-15] MEDS: ACETAMINOPHEN/HYDROcodone 325 MG/7.5 MG TAB PO PRN ×2 (17:40→22:39)
[2017-01-15 19:00] VITALS: BP 136/70; PULSE 77; RESP 17; TEMP 96.5; O2SAT 97
[2017-01-16] VITALS (8 sets, daily range): BP systolic 115–156; BP diastolic 54–76; PULSE 61–76; RESP 17–19; TEMP 95.7–98.2; O2SAT 94–98
[2017-01-16] MEDS: SODIUM CHLOR 0.9% 1000 ML INJ 1,000 ML IV SCH ×3 (02:29→20:00)
[2017-01-16] MEDS: ACETAMINOPHEN/HYDROcodone 325 MG/7.5 MG TAB PO PRN ×6 (02:35→23:56)
[2017-01-16 07:17] LABS: HEMATOCRIT 25.6 % (35.0-46.0); MEAN CORPUSCULAR HGB CONC 31.2 % (32.0-36.0); PLATELET COUNT 234 TH/MM3 (150-450); RED BLOOD COUNT 3.32 MIL/MM3 (4.00-5.30); RED CELL DISTRIBUTION WIDTH 20.8 % (11.6-17.2); REVIEW FLAG FINAL; WHITE BLOOD COUNT 7.5 TH/MM3 (4.0-11.0)
--- NOTE | 2017-01-16 07:34 | MP ---
cc: DESMOND ARAMBULA M.D. DATE OF SURGERY 01/15/2017 PREOPERATIVE DIAGNOSIS Left knee osteoarthritis. POSTOPERATIVE DIAGNOSIS Left knee osteoarthritis. PROCEDURE Left total knee arthroplasty. SURGEON Dr. Desmond Arambula [employer] Jamie Torres PA-C ANESTHESIA General with femoral nerve block. ESTIMATED BLOOD LOSS 50 cc. COMPLICATIONS None. IMPLANTS USED DePuy Attune size 7 posterior stabilized femoral component, size 7 rotating platform tibia baseplate, size 5-mm tibial insert, size 38 patella. JUSTIFICATION This patient is a 66-year-old female with history of severe end-stage osteoarthritis involving the left knee. She has severe disabling pain with standing, walking, ambulation and weightbearing activities, even severe pain at rest. She has failed greater than three months of nonoperative conservative treatment to include medication therapy, injections, ambulatory assistive aids, home exercise program, activity modification, weight loss attempts. X-rays of the left knee reveal severe end-stage osteoarthritis with [id number] joint space narrowing, subchondral sclerosis, subchondral cysts, osteophyte formation and varus deformity. The patient was counseled as to the risks, benefits and alternatives to a total knee arthroplasty. The risks were discussed which include but are not limited to anesthesia, bleeding, infection, damage to nerves, blood vessels, pain, stiffness, failure of the components, blood clots, pulmonary embolism and even . The patient's pain was severe. She favored the benefits over the risks and did wish to proceed with surgery. PROCEDURE IN DETAIL Written consent was obtained. The patient was identified by name, taken to the operating room, placed supine on the operating table. General anesthesia was administered as well as 2 grams of IV Ancef and 1 gram of IV vancomycin. The patient also received an adductor canal femoral nerve block. A well-padded tourniquet was placed on the left thigh, the left lower extremity prepped and draped using isopropyl alcohol, Hibiclens solution and Chloraprep solution. After a time-out was performed, an Esmarch bandage was used to exsanguinate the left lower extremity and the tourniquet was inflated to 300 mmHg. A longitudinal incision was made over the anterior aspect of the left knee. A medial parapatellar arthrotomy was performed. The patella was everted. Patella resection guide was used to resect 9 mm of patella. The size 38-mm guide was placed and three drill holes were placed. The 38-mm trial fit well. Attention was turned to the femur where an intramedullary guide wire was placed and the distal femoral guide was set to remove 10 mm of distal femur 5 degrees off the anatomic valgus axis in alignment. An oscillating saw was used to perform the distal femoral cut. Attention was turned to the tibia where an extramedullary tibial guide was set to remove 5 mm off the lowest portion of the medial tibial plateau. The tibial guide was pinned in place. The tibia cut was performed. A 5-mm spacer block showed full extension. Attention was turned back to the femur where the AP sizing block measured a size 7. The anterior reference, 3-degree external rotation guide was used to pin a size [address] The anterior and posterior chamfer cuts were performed. A size 7 PCL box guide was pinned in place and the PCL was boxed out with an oscillating saw. The medial and lateral meniscus remnants were removed as well as bone and soft tissue debris from the posterior portion of the knee. The size 7 tibial baseplate was pinned in place, the tibia was drilled and punched, trial components were evaluated and final components cemented in place. With the 5-mm tibial insert, the leg could achieve full extension to 0 degrees and flexion to 140. No evidence of tibial lift-off. Varus-valgus balance appeared appropriate and symmetric. The patella was noted to track centrally. With the tourniquet deflated, Bovie cautery used for hemostasis. The knee was thoroughly irrigated with sterile saline and pulse lavage antibiotic impregnated solution. The arthrotomy incision was closed with #1 Vicryl suture, the subcutaneous layer with 2-0 Vicryl suture. The skin was closed with Dermabond and sterile dressing applied. The patient tolerated the procedure well with no intraoperative complications noted. Jamie Torres, physician practice assistant certified, was present during the entire procedure to include patient positioning and the procedure itself. The medical necessity of the physician practice assistant was indicated in this case due to the complexity of the procedure. He assisted with appropriate manipulation of the leg and also retraction of muscle, tendon, bone and neurovascular structures. He assisted with preparation of bone and also implantation of the prosthetic replacement. MD NELIA Daley/MICHEAL /10:27 AM /7:23 AM
[2017-01-16 07:42] LABS: BICARBONATE 26.7 MEQ/L (21.0-32.0); POTASSIUM 3.8 MEQ/L (3.5-5.1)
--- NOTE | 2017-01-16 08:43 | PD.ORT.PN ---
Subjective Post Op Day #: 1 Subjective Remarks pain controlled. doing well. Objective Vitals Vital Signs Date Time Temp Pulse Resp B/P Pulse Ox O2 Delivery O2 Flow Rate FiO2 01/16/17 04:00 97.0 61 17 115/54 96 01/16/17 00:00 95.7 69 17 124/64 96 01/15/17 19:24 Nasal Cannula 3.00 01/15/17 19:00 96.5 77 17 136/70 97 01/15/17 16:00 96.1 90 17 115/68 96 01/15/17 13:10 98 Nasal Cannula 3.00 01/15/17 12:00 96.7 81 16 142/72 100 01/15/17 11:45 97.8 78 14 133/71 94 Nasal Cannula 3 01/15/17 11:30 75 14 153/77 94 Nasal Cannula 3 01/15/17 11:15 77 14 141/68 94 Nasal Cannula 3 01/15/17 11:00 75 14 150/73 95 Nasal Cannula 3 01/15/17 10:50 97.8 90 16 156/76 98 Nasal Cannula 3 I/O 01/15/17 01/15/17 01/15/17 01/16/17 01/16/17 01/16/17 07:00 15:00 23:00 07:00 15:00 23:00 Intake Total 1750 ml 1515 ml 1166 ml Output Total 1220 ml 600 ml 450 ml Balance 530 ml 915 ml 716 ml Intake Oral 600 ml 480 ml 150 ml IV Total 150 ml 1035 ml 1016 ml Other 1000 ml Output Urine Total 1100 ml 600 ml 450 ml Estimated Blood Loss 120 ml # Bowel Movements 0 0 0 Result Diagram: 01/16/17 0657 01/16/17 0657 Objective Remarks in bed, nad, eating dressing c/d/i neg homans nvi Assessment & Plan Ortho Post Op Day #: 1 Problem List: Assessment and Plan s/p R TKA wbat daily dressing changes lovenox d/c planning to snf - waiting on authorization chronic anemia - asymptomatic rx in chart 3008 signed f/up dr. robison 2 weeks Constantino Torres Jan 16, 2017 08:43
[2017-01-16] MEDS: SODIUM CHLORIDE 0.9% FLUSH 5 ML FLUSH IVF SCH ×2 (09:00→20:00)
[2017-01-16] MEDS: PANTOPRAZOLE SOD 40 MG DELAYED RELEASE TAB PO SCH (09:07)
[2017-01-16] MEDS ORDERED: PNEUMOCOCCAL POLYVALENT INJ 25 MCG/0.5 ML SYR IM ONE (10:00)
[2017-01-16] MEDS ORDERED: INFLUENZA VIRUS VACCINE (QUADRIVALENT) 0.5 ML SYR IM ONE (10:00)
--- NOTE | 2017-01-16 10:16 | HHI.PR ---
Subjective Remarks Follow up on patient s/p L TKR. Patient seen and examined today. Patient reports she feels well. Pain controlled. No BM as of yet but passing gas. Denies any fever, chills, SOB, chest pain or abdominal pain. Objective Vitals Vital Signs Date Time Temp Pulse Resp B/P Pulse Ox O2 Delivery O2 Flow Rate FiO2 01/16/17 09:53 98 Nasal Cannula 2.00 01/16/17 08:00 97.2 64 18 123/68 98 01/16/17 04:00 97.0 61 17 115/54 96 01/16/17 00:00 95.7 69 17 124/64 96 01/15/17 19:24 Nasal Cannula 3.00 01/15/17 19:00 96.5 77 17 136/70 97 01/15/17 16:00 96.1 90 17 115/68 96 01/15/17 13:10 98 Nasal Cannula 3.00 01/15/17 12:00 96.7 81 16 142/72 100 01/15/17 11:45 97.8 78 14 133/71 94 Nasal Cannula 3 01/15/17 11:30 75 14 153/77 94 Nasal Cannula 3 01/15/17 11:15 77 14 141/68 94 Nasal Cannula 3 01/15/17 11:00 75 14 150/73 95 Nasal Cannula 3 01/15/17 10:50 97.8 90 16 156/76 98 Nasal Cannula 3 I/O 01/15/17 01/15/17 01/15/17 01/16/17 01/16/17 01/16/17 07:00 15:00 23:00 07:00 15:00 23:00 Intake Total 1750 ml 1515 ml 1166 ml Output Total 1220 ml 600 ml 450 ml Balance 530 ml 915 ml 716 ml Intake Oral 600 ml 480 ml 150 ml IV Total 150 ml 1035 ml 1016 ml Other 1000 ml Output Urine Total 1100 ml 600 ml 450 ml Estimated Blood Loss 120 ml # Bowel Movements 0 0 0 Result Diagram: 01/16/17 0657 01/16/1757 Imaging Last Impressions Knee X-Ray 01/15/17 0644 Signed Impressions: Service Date/Time: Sunday, January 15, 2017 11:01 - CONCLUSION: 1. Status post left knee arthroplasty in anatomic alignment without significant acute fracture. Eleazar Bear MD Objective Remarks GENERAL: This is a well-nourished, well-developed patient, in no apparent distress. Ambulating in hallway with PT. SKIN: No rashes, ecchymoses or lesions. Warm and dry. HEENT: Atraumatic. Normocephalic. EOMI. MMM. CARDIOVASCULAR: Regular rate and rhythm without murmurs, gallops, or rubs. No JVD. RESPIRATORY: Clear to auscultation. Breath sounds equal bilaterally. No wheezes , rales, or rhonchi. GASTROINTESTINAL: Abdomen soft, non-tender, nondistended. No guarding. MUSCULOSKELETAL: Extremities without clubbing, cyanosis, or edema. s/p left TKA , lizz wrap in place. Moves all toes. NEUROLOGICAL: Awake and alert. Able to move all extremities. No focal neurological deficits. Normal speech. Medications and IVs Current Medications Medications (Trade) Dose Ordered Sig/Brielle Route Start Time Stop Time Status Last Admin Pantoprazole Sodium 40 mg 40 mg DAILY PO 01/15/17 09:00 01/16/17 09:07 (NS 1000 ml Inj) 1,000 ml @ 100 mls/hr Q10H IV 01/15/17 06:44 01/16/17 02:29 (NS Flush) 2 ml UNSCH PRN IVF 01/15/17 06:45 01/15/17 12:45 (NS Flush) 2 ml BID IVF 01/15/17 09:00 01/16/17 09:00 (Lovenox Inj) 40 mg Q24H SQ 01/16/17 10:00 01/25/17 10:01 (Morphine Inj) 3 mg Q3H PRN IV PUSH 01/15/17 06:45 01/15/17 12:45 ([place] 7.5-325 Mg) 1 tab Q4H PRN PO 01/15/17 06:45 01/15/17 13:55 ([place] 7.5-325 Mg) 2 tab Q4H PRN PO 01/15/17 06:45 01/16/17 06:34 (Theragran M Tab) 1 tab BID PO 01/16/17 21:00 03/17/17 20:59 (Zofran Inj) 4 mg Q6H PRN IVP 01/15/17 06:45 (Colace) 100 mg BID PO 01/16/17 21:00 (Mag-Al Plus Susp Liq) 30 ml Q6H PRN PO 01/15/17 06:45 (Ambien) 5 mg HS PRN PO 01/15/17 06:45 (Dulcolax Supp) 10 mg DAILY PRN RECTAL 01/15/17 06:45 (Narcan Inj) 0.4 mg UNSCH PRN IV 01/15/17 06:45 (Benadryl Inj) 25 mg Q6H PRN IV 01/15/17 06:45 Miscellaneous Information ALL NURSING DEPARTME... UNSCH PRN .XX 01/15/17 11:00 01/16/17 10:59 A/P Problem List: (1) Osteoarthritis of left knee ICD Code: M17.12 Status: Acute (2) GERD (gastroesophageal reflux disease) ICD Code: K21.9 Status: Acute Assessment and Plan Ms. Corona is a 66 year old female with a history of osteoarthritis, GERD who underwent left sided total knee arthroplasty on 01/15/2017. Hospitalist service was consulted for medical management. - Osteoarthritis of left knee - s/p Left sided total knee arthroplasty 01/15/17. Doing well. Continue WBAT. Ambulated 100ft with PT. - Continue pain management. [place] 7.5/325 1-2 tablets and Morphine IV for pain PRN. - Docusate as well as Dulcolax suppository for bowel regimen. - Lovenox 40mg Q24hrs starting 01/16/2017 (10 doses). - GERD - Continue Protonix. - Anemia, microcytic, hypochromic - chronic per primary team - Appears stable - iron studies ordered - monitor CBC intermittently - Constipation - (+)flatus - to begin Docusate today - monitor for BM Discussed with nursing staff, patient and Dr. Bailey Discharge Planning to SNF per primary team Emily Huff Jan 16, 2017 10:16
[2017-01-16] MEDS: ENOXAPARIN SODIUM 40 MG/0.4 ML SYRINGE SQ SCH (10:43)
[2017-01-16 11:41] LABS: FERRITIN 8 NG/ML (8-252); TRANSFERRIN IRON PROFILE 304 MG/DL (200-360)
[2017-01-16] MEDS: DOCUSATE SODIUM 100 MG CAP PO SCH (19:59)
[2017-01-16] MEDS: MULTIVITAMINS/MINERALS THERAPEUTIC TAB PO SCH (20:00)
[2017-01-16] MEDS: FERROUS SULFATE 325 MG (65 MG ELEMENTAL IRON) TAB PO SCH (20:00)
[2017-01-16] MEDS: ASCORBIC ACID 500 MG TAB PO SCH (20:00)
[2017-01-17] VITALS: BP 175/80; PULSE 85; RESP 18; TEMP 99.9; O2SAT 93
[2017-01-17] MEDS: ACETAMINOPHEN/HYDROcodone 325 MG/7.5 MG TAB PO PRN ×2 (04:03→08:56)
[2017-01-17 06:14] LABS: HEMATOCRIT 26.5 % (35.0-46.0); MEAN CORPUSCULAR HEMOGLOBIN 24.3 PG (27.0-34.0); PLATELET COUNT 252 TH/MM3 (150-450); RED BLOOD COUNT 3.49 MIL/MM3 (4.00-5.30); RED CELL DISTRIBUTION WIDTH 20.6 % (11.6-17.2); REVIEW FLAG FINAL; WHITE BLOOD COUNT 6.9 TH/MM3 (4.0-11.0)
[2017-01-17 06:36] LABS: BICARBONATE 26.9 MEQ/L (21.0-32.0); POTASSIUM 3.6 MEQ/L (3.5-5.1)
[2017-01-17] MEDS ORDERED: cloNIDine HCL 0.1 MG TAB PO PRN (07:30)
--- NOTE | 2017-01-17 07:59 | PD.ORT.PN ---
Subjective Post Op Day #: 2 Subjective Remarks thigh is sore. doing well. Objective Vitals Vital Signs Date Time Temp Pulse Resp B/P Pulse Ox O2 Delivery O2 Flow Rate FiO2 01/17/17 00:00 99.9 85 18 175/80 93 01/16/17 20:20 97.2 76 17 156/68 94 01/16/17 18:13 98 Nasal Cannula 2.00 01/16/17 16:00 98.2 68 19 132/76 98 01/16/17 12:00 97.8 70 18 143/73 98 01/16/17 09:53 98 Nasal Cannula 2.00 01/16/17 08:00 97.2 64 18 123/68 98 I/O 01/16/17 01/16/17 01/16/17 01/17/17 01/17/17 01/17/17 07:00 15:00 23:00 07:00 15:00 23:00 Intake Total 1166 ml 600 ml 720 ml 240 ml Output Total 450 ml Balance 716 ml 600 ml 720 ml 240 ml Intake Oral 150 ml 600 ml 720 ml 240 ml IV Total 1016 ml Output Urine Total 450 ml # Voids 4 3 2 # Bowel Movements 0 1 0 Result Diagram: 01/17/17 0534 01/17/17 0534 Objective Remarks in bed, nad, eating incision no erythema, no drainage neg homans nvi Assessment & Plan Ortho Post Op Day #: 2 Problem List: Assessment and Plan s/p R TKA wbat daily dressing changes lovenox d/c planning to snf - cleared for d/c when insurance authorizes chronic anemia - asymptomatic rx in chart 3008 signed f/up dr. robison 2 weeks Constantino Torres Jan 17, 2017 07:59
[2017-01-17 08:00] VITALS: BP 164/70; PULSE 82; RESP 18; TEMP 96.7; O2SAT 98
[2017-01-17] MEDS ORDERED: TRAM50TA PO (08:02)
[2017-01-17] MEDS: SODIUM CHLOR 0.9% 1000 ML INJ 1,000 ML IV SCH (08:44)
[2017-01-17] MEDS: DOCUSATE SODIUM 100 MG CAP PO SCH (08:57)
[2017-01-17] MEDS: MULTIVITAMINS/MINERALS THERAPEUTIC TAB PO SCH (08:57)
[2017-01-17] MEDS: FERROUS SULFATE 325 MG (65 MG ELEMENTAL IRON) TAB PO SCH (08:57)
[2017-01-17] MEDS: SODIUM CHLORIDE 0.9% FLUSH 5 ML FLUSH IVF SCH (08:57)
[2017-01-17] MEDS: PANTOPRAZOLE SOD 40 MG DELAYED RELEASE TAB PO SCH (08:57)
[2017-01-17] MEDS: ASCORBIC ACID 500 MG TAB PO SCH (08:57)
--- NOTE | 2017-01-17 09:04 | HHI.PR ---
Subjective Remarks Follow up on patient s/p L TKR. Patient seen and examined today. Patient complaining of uncontrolled left knee pain. She discussed as much with Ortho PA who is adding breakthrough pain med. She is very apprehensive about her transfer to SNF facility later today due to the poor pain management she received the last time she was at that facility following her right TKR. Otherwise she is doing well. (+)BM. No headache, dizziness, fever, chills, N/V , SOB, chest pain or abdominal pain. Objective Vitals Vital Signs Date Time Temp Pulse Resp B/P Pulse Ox O2 Delivery O2 Flow Rate FiO2 01/17/17 08:00 96.7 82 18 164/70 98 01/17/17 00:00 99.9 85 18 175/80 93 01/16/17 20:20 97.2 76 17 156/68 94 01/16/17 18:13 98 Nasal Cannula 2.00 01/16/17 16:00 98.2 68 19 132/76 98 01/16/17 12:00 97.8 70 18 143/73 98 01/16/17 09:53 98 Nasal Cannula 2.00 I/O 01/16/17 01/16/17 01/16/17 01/17/17 01/17/17 01/17/17 07:00 15:00 23:00 07:00 15:00 23:00 Intake Total 1166 ml 600 ml 720 ml 240 ml Output Total 450 ml Balance 716 ml 600 ml 720 ml 240 ml Intake Oral 150 ml 600 ml 720 ml 240 ml IV Total 1016 ml Output Urine Total 450 ml # Voids 4 3 2 # Bowel Movements 0 1 0 Result Diagram: 01/17/17 0534 01/17/17 0534 Imaging Last Impressions Knee X-Ray 01/15/17 0644 Signed Impressions: Service Date/Time: Sunday, January 15, 2017 11:01 - CONCLUSION: 1. Status post left knee arthroplasty in anatomic alignment without significant acute fracture. Eleazar Bear MD Objective Remarks GENERAL: This is a well-nourished, well-developed patient, in no apparent distress. Awake and alert. Lying in hospital bed. Became tearful discussing her transfer to SNF facility. SKIN: No rashes, ecchymoses or lesions. Warm and dry. HEENT: Atraumatic. Normocephalic. EOMI. MMM. CARDIOVASCULAR: Regular rate and rhythm without murmurs, gallops, or rubs. No JVD. RESPIRATORY: Clear to auscultation. Breath sounds equal bilaterally. No wheezes , rales, or rhonchi. GASTROINTESTINAL: Abdomen soft, non-tender, nondistended. No guarding. MUSCULOSKELETAL: Extremities without clubbing, cyanosis, or edema. s/p left TKA , lizz wrap in place. Dressing C/D/I. Moves all toes. NEUROLOGICAL: Awake and alert. Able to move all extremities. No focal neurological deficits. Normal speech. Medications and IVs Current Medications Medications (Trade) Dose Ordered Sig/Brielle Route Start Time Stop Time Status Last Admin Pantoprazole Sodium 40 mg 40 mg DAILY PO 01/15/17 09:00 01/16/17 09:07 (NS 1000 ml Inj) 1,000 ml @ 100 mls/hr Q10H IV 01/15/17 06:44 01/16/17 02:29 (NS Flush) 2 ml UNSCH PRN IVF 01/15/17 06:45 01/15/17 12:45 (NS Flush) 2 ml BID IVF 01/15/17 09:00 01/16/17 20:00 (Lovenox Inj) 40 mg Q24H SQ 01/16/17 10:00 01/25/17 10:01 01/16/17 10:43 (Morphine Inj) 3 mg Q3H PRN IV PUSH 01/15/17 06:45 01/15/17 12:45 ([place] 7.5-325 Mg) 1 tab Q4H PRN PO 01/15/17 06:45 01/15/17 13:55 ([place] 7.5-325 Mg) 2 tab Q4H PRN PO 01/15/17 06:45 01/17/17 04:03 (Theragran M Tab) 1 tab BID PO 01/16/17 21:00 03/17/17 20:59 01/16/17 20:00 (Zofran Inj) 4 mg Q6H PRN IVP 01/15/17 06:45 (Colace) 100 mg BID PO 01/16/17 21:00 01/16/17 19:59 (Mag-Al Plus Susp Liq) 30 ml Q6H PRN PO 01/15/17 06:45 (Ambien) 5 mg HS PRN PO 01/15/17 06:45 (Dulcolax Supp) 10 mg DAILY PRN RECTAL 01/15/17 06:45 (Narcan Inj) 0.4 mg UNSCH PRN IV 01/15/17 06:45 (Benadryl Inj) 25 mg Q6H PRN IV 01/15/17 06:45 (Ferrous Sulfate) 325 mg BID PO 01/16/17 21:00 01/16/17 20:00 (Vitamin C) 500 mg BID PO 01/16/17 21:00 01/16/17 20:00 (Catapres) 0.1 mg Q6H PRN PO 01/17/17 07:30 A/P Problem List: (1) Osteoarthritis of left knee ICD Code: M17.12 Status: Acute (2) GERD (gastroesophageal reflux disease) ICD Code: K21.9 Status: Acute Assessment and Plan Ms. Corona is a 66 year old female with a history of osteoarthritis, GERD who underwent left sided total knee arthroplasty on 01/15/2017. Hospitalist service was consulted for medical management. - Osteoarthritis of left knee - s/p Left sided total knee arthroplasty 01/15/17. Doing well except for pain control. Primary team to address pain control. Continue WBAT. Continue participation with PT. - Continue pain management. [place] 7.5/325 1-2 tablets and Morphine IV for pain PRN. - Docusate as well as Dulcolax suppository for bowel regimen. (+)BM. - Lovenox 40mg Q24hrs starting 01/16/2017 (10 doses). - GERD - Continue Protonix. - Anemia, microcytic, hypochromic - chronic per primary team - Appears stable - iron studies indicative of MARISEL. Started on po iron supplementation. - monitor CBC intermittently - Constipation - (+)BM - continue Docusate daily Discussed with patient and Dr. Bailey Discharge Planning to SNF per primary team Emily Huff Jan 17, 2017 09:04
[2017-01-17] MEDS ORDERED: LIDOCAINE HCL 5% PATCH T-DERMAL SCH (10:00)
[2017-01-17] MEDS ORDERED: REMOVE OLD LIDOCAINE PATCH T-DERMAL SCH (10:00)
[2017-01-17] MEDS: ENOXAPARIN SODIUM 40 MG/0.4 ML SYRINGE SQ SCH (11:14)
--- NOTE | 2017-01-20 21:32 | MD ---
cc: DESMOND ARAMBULA M.D. ADMISSION DATE: 01/15/2017 DISCHARGE DATE: 01/17/2017 ADMISSION DIAGNOSIS: Severe degenerative osteoarthritis, left knee. DISCHARGE DIAGNOSIS: Severe degenerative osteoarthritis, left knee. HISTORY OF PRESENT ILLNESS: Mrs. Corona is a 66-year-old female who presented to the [facility] for evaluation by Dr. Desmond Arambula regarding her progressive left knee pain. She states the pain has been bothering her for greater than one year in duration for which she has received treatment for this ailment. She notes the pain is progressive and currently a severe aching sensation that is inhibiting her activities of daily living. She has no alleviating factors at this point time, although in the past she has tried medications, bracing, physical therapy, a home exercise program, multiple injections without relief of symptoms. She does have history of a well functioning right total knee arthroplasty. The patient does have x-ray evidence of severe degenerative osteoarthritis of the left knee. While in the office, the patient was counseled as to her diagnosis and treatment options, risks, benefits, indications were all discussed in great detail. The patient did elect proceed with surgical intervention to include a left total knee arthroplasty. HOSPITAL COURSE: The date of surgery was 01/15/2017 and was a left total knee arthroplasty. Postop after surgery, the patient was admitted to [facility] where she received appropriate medical management, pain control, DVT prophylaxis as well as physical therapy and discharged. Once being discharged from the hospital, the patient is cleared to go to a senior living facility. She is in stable condition. She may weight-bear as tolerated. She has received daily dressing changes and has been instructed on proper wound care management. She has been provided prescriptions for pain control as well as DVT prophylaxis medication. She has also been provided a follow-up appointment in approximately two weeks from her operative date. The patient has asked appropriate questions, which have been answered. She is cleared for discharge. Dictated by Jamie Torres PA-C. MD NELIA Daley/REJI /8:21 AM /9:32 PM
== END 2017-01-17 12:37 | DRG 470 ==
LOC: HSDI 01-15 05:25 → N06B 01-15 11:54
PROVIDERS: ADMIT Orthopaedic Surgery Sports Medicine; ATTEND Orthopaedic Surgery Sports Medicine
PROC: 3E0T3CZ (ICD-10-PCS; 2017-01-15)
PROC: 0SRD0J9 Replacement of Left Knee Joint with Synthetic Substitute, Cemented, Open Approach (ICD-10-PCS; principal; 2017-01-15 08:22)
DX: M17.12 Unilateral primary osteoarthritis, left knee (principal); D50.9 Iron deficiency anemia, unspecified; K21.9 Gastro-esophageal reflux disease without esophagitis; K59.00 Constipation, unspecified; Z96.651 Presence of right artificial knee joint; Z98.84 Bariatric surgery status
CPT/HCPCS: 73560; 80048; 81001; 82728; 83540; 83550; 85027; 86850; 86900; 86901; 90732; 94150; C1776; C9290; J0131; J0171; J0690; J0735; J1100; J1580; J1650; J1885; J2250; J2270; J2370; J2405; J2710; J2795; J3010; J3370; J7030; J7050; J7120; L1830

== ENCOUNTER 2017-10-10 10:09 | Emergency (ER) | payer MEDICARE, OTHER ==
[~2017-10-10] VITALS: Ht 162.6 cm; Wt 95.0 kg
[~2017-10-10 10:09] MED LIST changes: +ASPI81CH6 CHEW; +ENOX40P SQ; +HYDR-3288 PO; +TRAM50TA PO
[2017-10-10 10:14] VITALS: BP 136/89; PULSE 95; RESP 18; TEMP 97.7; O2SAT 98
[2017-10-10] MEDS ORDERED: ORPHENADRINE INJ 60 MG/2 ML AMP IM ONE (10:30)
--- NOTE | 2017-10-10 10:41 | PD ---
HPI Chief Complaint: Back/ Neck Pain or Injury Time Seen by Provider: 10:22 Travel History International Travel<30 days: No Contact w/Intl Traveler<30days: No Traveled to known affect area: No History of Present Illness HPI 67-year-old female presents to the emergency room for evaluation of right upper back spasms. Patient started having mild symptoms 2 days ago but they worsened this morning when she woke up. Pain is sharp, constant, patient states it feels "like zingers." She has had similar symptoms in the past but over her entire back. Arm movement does not worsen symptoms. She has not taken anything or done anything for her symptoms. It is better with massage. She denies any trauma or injury to the back. Denies any fever, chills, nausea, vomiting, or abdominal pain. 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) Oral Surgery: No Pacemaker: No Thoracic Surgery: No Social History Tobacco Use: No Substance Use: No Allergies-Medications (Allergen,Severity, Reaction): Coded Allergies: No Known Allergies (Unverified Adverse Reaction, Unknown, 10/10/17) Reported Meds & Prescriptions Reported Meds & Active Scripts Active Tramadol (Tramadol HCl) 50 Mg Tab 50 Mg PO Q4H PRN Aspirin Low Dose (Aspirin) 81 Mg Chew 81 Mg CHEW BID Lovenox Inj (Enoxaparin Sodium) 40 Mg/0.4 Ml Syr 40 Mg SQ DAILY [place] (Hydrocodone-Acetaminophen) 7.5-325 mg Tab 1-2 Tab PO Q6H PRN Walker with Front Wheels (Device) 1 Mis Mis 1 Ea .ROUTE DIRECTED Reported Nexium (Esomeprazole DR) 40 Mg Capdr 40 Mg PO DAILY Review of Systems Except as stated in HPI: all other systems reviewed are Neg Physical Exam Narrative GENERAL: Well-nourished, well-developed female no acute distress. Afebrile. Ambulatory. SKIN: Focused skin assessment warm/dry. No erythema or ecchymosis. HEAD: Normocephalic. EYES: No scleral icterus. No injection or drainage. NECK: Supple, trachea midline. No JVD or lymphadenopathy. CARDIOVASCULAR: Regular rate and rhythm without murmurs, gallops, or rubs. RESPIRATORY: Breath sounds equal bilaterally. No accessory muscle use. BACK: Nontender without obvious deformity. No CVA tenderness. There is pain over the right trapezius muscle that improves with massage. Patient has full range of motion of the right upper extremity. No rash. Data Data Last Documented VS Vital Signs Date Time Temp Pulse Resp B/P (MAP) Pulse Ox O2 Delivery O2 Flow Rate FiO2 10/10/17 10:14 97.7 95 18 136/89 (105) 98 Orders Orders Orphenadrine Inj (Norflex Inj) (10/10/17 10:30) MDM Medical Decision Making Medical Screen Exam Complete: Yes Emergency Medical Condition: Yes Medical Record Reviewed: Yes Differential Diagnosis Muscle spasm, shingles, strain, sprain Narrative Course 67-year-old female presents to the emergency room for evaluation of right trapezius muscle spasms that started 2 days ago and worsened today. Physical exam is reassuring. Muscle pain is improved with massage. No rash. Patient given Norflex in the emergency room and discharged with prescription for Robaxin. Told to follow-up with a primary care physician or return for worsening symptoms. She understands and agrees to plan. Diagnosis Primary Impression: Back muscle spasm Referrals: Primary Care Physician Additional Instructions: If you develop a rash, return to the emergency room. Take ibuprofen and Robaxin as directed, as needed for pain. Return to the emergency room for worsening symptoms. Disposition: 01 DISCHARGE HOME Condition: Stable Erica Heck Oct 10, 2017 10:41
[2017-10-10] MEDS ORDERED: ROBA750T PO (10:51)
== END 2017-10-10 10:58 | disposition home or self-care (01) ==
LOC: NEPK 10:09
DX: M62.830 Muscle spasm of back (principal); M19.90 Unspecified osteoarthritis, unspecified site; Z98.84 Bariatric surgery status; Z79.82 Long term (current) use of aspirin
CPT/HCPCS: 96372; 99283; J2360